=== PATIENT | male | born 1985 | race Caucasian/White ===

== ENCOUNTER 2020-02-23 20:33 | Emergency (ER) | payer BC, OTHER ==
[2020-02-23] MEDS ORDERED: IBUPROFEN 600 MG TABLET (FP) PO ONE (20:51)
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
[2020-02-23 21:00] VITALS: BP 133/94; PULSE 94; TEMP 98.5; BMI 39.9
== END 2020-02-23 21:04 | disposition home or self-care (01) ==
LOC: JER 20:33
DX: M54.5 Low back pain (principal)
CPT/HCPCS: 99284-25